=== PATIENT | male | born 1980 | race Caucasian/White ===

== ENCOUNTER 2016-06-09 11:36 | Emergency (ER) | payer MEDICAID ==
[~2016-06-09] VITALS: Ht 175.3 cm; Wt 87.1 kg
[2016-06-09] MEDS ORDERED: SYNT25TA PO (11:47)
[2016-06-09] MEDS ORDERED: FLOV50AE IN (11:47)
[2016-06-09] MEDS ORDERED: ALBU17IN2 INH (11:47)
--- NOTE | 2016-06-09 13:59 | REP ---
RIGHT KNEE, FIVE VIEWS: HISTORY: Pain. There is no acute fracture or dislocation. The joint spaces are normal in appearance. IMPRESSION: There is no acute fracture or dislocation. Signed by Aldair Victor MD 06/09/2016 02:05 P
[2016-06-09] MEDS ORDERED: MELO7.5T6 PO (14:20)
[2016-06-09 14:28] VITALS: BP 121/79
== END 2016-06-09 14:30 | disposition home or self-care (01) ==
LOC: M ED 12:46
DX: M25.561 Pain in right knee (principal); Z79.899 Other long term (current) drug therapy; Z91.030 Bee allergy status; Z88.0 Allergy status to penicillin; Z91.018 Allergy to other foods

== ENCOUNTER 2016-09-22 08:29 | Emergency (ER) | payer MEDICAID, OTHER ==
[~2016-09-22] VITALS: Ht 175.3 cm; Wt 86.3 kg
[~2016-09-22 08:29] MED LIST: ALBU17IN2 INH; FLOV50AE IN; MELO7.5T7 PO; SYNT25TA PO
[2016-09-22 08:40] VITALS: BP 126/74
[2016-09-22] MEDS ORDERED: IBUPROFEN 800 MG TAB PO ONE (09:30)
[2016-09-22] MEDS ORDERED: NORCOTAB PO (10:03)
--- NOTE | 2016-09-22 10:27 | REP ---
UNILATERAL LEFT RIBS, PA CHEST, FIVE VIEWS: HISTORY: Left anterior rib pain. The lungs are clear. The heart is normal in size. The pulmonary vasculature is normal in appearance. There is a fracture of the left 7th rib. IMPRESSION: Left 7th rib fracture. Signed by Aldair Victor MD 09/22/2016 10:29 A
== END 2016-09-22 10:15 | disposition home or self-care (01) ==
LOC: M ED 08:29
DX: S22.32XA Fracture of one rib, left side, initial encounter for closed fracture (principal); V19.9XXA Pedal cyclist (driver) (passenger) injured in unspecified traffic accident, initial encounter; Y92.830 Public park as the place of occurrence of the external cause; Y93.55 Activity, bike riding; Y99.9 Unspecified external cause status; J45.909 Unspecified asthma, uncomplicated; E07.9 Disorder of thyroid, unspecified; F17.200 Nicotine dependence, unspecified, uncomplicated; Z91.030 Bee allergy status; Z88.0 Allergy status to penicillin; Z91.018 Allergy to other foods

== ENCOUNTER → 2016-12-08 | Outpatient (REF) ==
[~2016-12-08] MED LIST changes: +NORCOTAB PO
--- NOTE | 2016-12-08 13:38 | REP ---
Lumbar spine three views: There are no comparisons. Vertebral body heights, interspacing alignment are normal. I suspect there is L5 spondylolysis. There is no spondylolisthesis. The pedicles, facets and sacroiliac articulations are unremarkable. There is a pelvic calcification inferiorly on the right. Impression: L5 spondylolysis without spondylolisthesis. Pelvic calcification. Otherwise, negative lumbar spine. Signed by Carlos Tenorio MD 12/08/2016 01:29 P
== END ==
LOC: M SMT 11:57
PROVIDERS: ATTEND Internal Medicine
DX: M54.5 Low back pain (principal)

== ENCOUNTER 2017-04-11 12:38 | Emergency (ER) | payer OTHER ==
[2017-04-11 14:30] LABS: BASO # 0.2 10^3/uL (0.0-0.2); BASO % 1.1 % (0.0-1.0); EOS # 0.3 10^3/uL (0.0-0.50); EOS % 2.4 % (0.0-3.0); HEMATOCRIT 47.6 % (42.0-52.0); IMMATURE GRANULOCYTE % 3.1 % (0-3.0); LYMPH # 2.1 10^3/uL (1.5-4.5); LYMPH % 14.8 % (24.0-44.0); MEAN CORPUSCULAR HEMOGLOBIN 31.7 pg (27.0-33.0); MEAN CORPUSCULAR HGB CONC 35.7 g/dl (32.0-36.5); MEAN CORPUSCULAR VOLUME 88.8 fl (80.0-96.0); MONO # 1.2 10^3/uL (0.0-0.8); MONO % 8.4 % (0.0-5.0); NEUTROPHILS # 9.8 10^3/uL (1.8-7.7); NEUTROPHILS % 70.2 % (36.0-66.0); PLATELET COUNT, AUTOMATED 264 10^3/uL (150-450); RED BLOOD COUNT 5.36 10^6/uL (4.30-6.10); RED CELL DISTRIBUTION WIDTH 12.3 % (11.5-14.5)
[2017-04-11 14:52] LABS: ANION GAP 7 MEQ/L (8-16); BLOOD UREA NITROGEN 24 MG/DL (7-18); C REACTIVE PROTEIN QUANTITATIV 0.38 MG/DL (0.00-0.30); CALCIUM LEVEL 8.9 MG/DL (8.5-10.1); CARBON DIOXIDE LEVEL 23 MEQ/L (21-32); CHLORIDE LEVEL 110 MEQ/L (98-107); CREATININE FOR GFR 1.07 MG/DL (0.70-1.30); GLOMERULAR FILTRATION RATE > 60.0 (>60); GLUCOSE, FASTING 120 MG/DL (70-100); POTASSIUM SERUM 4.2 MEQ/L (3.5-5.1); SODIUM LEVEL 140 MEQ/L (136-145)
[2017-04-11 16:28] LABS: CHLAMYDIA DNA AMPLIFICATION NEGATIVE (NEGATIVE); GC DNA AMPLIFICATION NEGATIVE (NEGATIVE)
[2017-04-11] MEDS: IBUPROFEN 600 MG TAB PO (16:56)
== END 2017-04-11 17:00 | disposition home or self-care (01) ==
LOC: M ED 12:38
DX: M77.9 Enthesopathy, unspecified (principal); M70.32 Other bursitis of elbow, left elbow; F17.210 Nicotine dependence, cigarettes, uncomplicated; E03.9 Hypothyroidism, unspecified; Z91.018 Allergy to other foods; Z88.0 Allergy status to penicillin; Z91.030 Bee allergy status
CPT/HCPCS: 73080

== ENCOUNTER → 2017-04-19 | Outpatient (CLI) | payer OTHER ==
[2017-04-19 13:56] LABS: BASO # 0.1 10^3/uL (0.0-0.2); BASO % 0.7 % (0.0-1.0); EOS # 0.2 10^3/uL (0.0-0.50); EOS % 1.4 % (0.0-3.0); HEMATOCRIT 48.4 % (42.0-52.0); HEMOGLOBIN 16.8 g/dl (14.0-18.0); IMMATURE GRANULOCYTE % 2.4 % (0-3.0); LYMPH # 2.1 10^3/uL (1.5-4.5); LYMPH % 18.5 % (24.0-44.0); MEAN CORPUSCULAR HEMOGLOBIN 31.3 pg (27.0-33.0); MEAN CORPUSCULAR HGB CONC 34.7 g/dl (32.0-36.5); MEAN CORPUSCULAR VOLUME 90.3 fl (80.0-96.0); MONO # 0.6 10^3/uL (0.0-0.8); MONO % 5.3 % (0.0-5.0); NEUTROPHILS # 8.1 10^3/uL (1.8-7.7); NEUTROPHILS % 71.7 % (36.0-66.0); PLATELET COUNT, AUTOMATED 267 10^3/uL (150-450); RED BLOOD COUNT 5.36 10^6/uL (4.30-6.10); RED CELL DISTRIBUTION WIDTH 12.4 % (11.5-14.5); WHITE BLOOD COUNT 11.3 10^3/uL (4.0-10.0)
[2017-04-19 14:15] LABS: ESTIMATED AVERAGE GLUCOSE 94 MG/DL (60-110); HEMOGLOBIN A1c 4.9 %
[2017-04-19 14:32] LABS: ALBUMIN 4.2 GM/DL (3.2-5.2); ALBUMIN/GLOBULIN RATIO 1.24 (1.00-1.93); ALKALINE PHOSPHATASE 92 U/L (45-117); ALT/SGPT 19 U/L (12-78); ANION GAP 7 MEQ/L (8-16); AST/SGOT 15 U/L (7-37); BILIRUBIN,TOTAL 0.5 MG/DL (0.2-1.0); BLOOD UREA NITROGEN 13 MG/DL (7-18); CALCIUM LEVEL 9.1 MG/DL (8.5-10.1); CARBON DIOXIDE LEVEL 28 MEQ/L (21-32); CHLORIDE LEVEL 106 MEQ/L (98-107); CHOLESTEROL LEVEL 172 MG/DL (<200); CHOLESTEROL RISK RATIO 4.095 (<5); CREATININE FOR GFR 1.11 MG/DL (0.70-1.30); FREE THYROXINE INDEX 2.3 % (1.4-3.8); GLOMERULAR FILTRATION RATE > 60.0 (>60); GLUCOSE, FASTING 82 MG/DL (70-100); HDL CHOLESTEROL 42 MG/DL (>40); LDL CHOLESTEROL 96.4 MG/DL (<100); NON-HDL-C 130 MG/DL; POTASSIUM SERUM 4.1 MEQ/L (3.5-5.1); SODIUM LEVEL 141 MEQ/L (136-145); T UPTAKE 30 % (33-40); THYROXINE (T4) 7.7 UG/DL (4.5-12.0); TOTAL PROTEIN 7.6 GM/DL (6.4-8.2); TRIGLYCERIDES LEVEL 168 MG/DL (<150)
[2017-04-19 15:34] LABS: CHLAMYDIA DNA AMPLIFICATION NEGATIVE (NEGATIVE); GC DNA AMPLIFICATION NEGATIVE (NEGATIVE)
[2017-04-20 08:13] LABS: HEPATITIS B CORE ANTIBODY IGG Negative (Negative)
[2017-04-21 13:03] LABS: HEPATITIS B SURFACE ANTIBODY NEGATIVE (POSITIVE)
[2017-04-21 13:41] LABS: HEPATITIS C VIRUS ABY INDEX 0.1 INDEX (<0.8)
[2017-04-21 13:42] LABS: HIV 1&2 SCREEN CENTAUR NEGATIVE (NEGATIVE)
== END ==
LOC: M LAB 13:01
DX: Z13.9 Encounter for screening, unspecified (principal); R94.6 Abnormal results of thyroid function studies; E78.5 Hyperlipidemia, unspecified
CPT/HCPCS: 84443

== ENCOUNTER 2017-05-31 13:18 | Emergency (ER) | payer OTHER ==
[2017-05-31] MEDS ORDERED: BACITRACIN OINT 30GM TOP (15:39)
[2017-05-31] MEDS: IBUPROFEN 600 MG TAB PO (16:00)
[2017-05-31] MEDS: NEOSPORIN OINT 0.9 GM PKT (FLOOR STOCK) TOP (16:00)
== END 2017-05-31 16:03 | disposition home or self-care (01) ==
LOC: M ED 13:18
DX: S01.91XA Laceration without foreign body of unspecified part of head, initial encounter (principal); W22.09XA Striking against other stationary object, initial encounter; Y92.410 Unspecified street and highway as the place of occurrence of the external cause; Y93.02 Activity, running; E03.9 Hypothyroidism, unspecified; F17.200 Nicotine dependence, unspecified, uncomplicated; Z79.890 Hormone replacement therapy; Z91.030 Bee allergy status; Z88.0 Allergy status to penicillin; Z91.018 Allergy to other foods
CPT/HCPCS: 12004

== ENCOUNTER 2017-12-09 14:13 | Emergency (ER) | payer OTHER | END 2017-12-09 16:22 | disposition home or self-care (01) | LOC: M ED 14:13 | DX: S46.001A Unspecified injury of muscle(s) and tendon(s) of the rotator cuff of right shoulder, initial encounter (principal); V18.0XXA Pedal cycle driver injured in noncollision transport accident in nontraffic accident, initial encounter; Y92.89 Other specified places as the place of occurrence of the external cause; I10 Essential (primary) hypertension; J45.909 Unspecified asthma, uncomplicated; E03.9 Hypothyroidism, unspecified; F33.9 Major depressive disorder, recurrent, unspecified; Z88.0 Allergy status to penicillin; Z91.018 Allergy to other foods; Z91.030 Bee allergy status; F17.210 Nicotine dependence, cigarettes, uncomplicated | CPT/HCPCS: 73030 ==

== ENCOUNTER → 2018-04-13 | Outpatient (CLI) | payer OTHER ==
[~2018-04-13] MED LIST changes: +IBUP-1114 PO; +LEVO10VL IM; +LEVO112T2 PO; +NAPR-50 PO
[2018-04-13 15:04] LABS: BASO # 0.1 10^3/uL (0.0-0.2); BASO % 0.7 % (0.0-1.0); EOS # 0.2 10^3/uL (0.0-0.50); EOS % 1.6 % (0.0-3.0); HEMATOCRIT 45.5 % (42.0-52.0); LYMPH # 2.4 10^3/uL (1.5-4.5); LYMPH % 18.6 % (24.0-44.0); MEAN CORPUSCULAR HEMOGLOBIN 31.9 pg (27.0-33.0); MEAN CORPUSCULAR HGB CONC 35.2 g/dl (32.0-36.5); MEAN CORPUSCULAR VOLUME 90.6 fl (80.0-96.0); MONO # 0.7 10^3/uL (0.0-0.8); MONO % 5.4 % (0.0-5.0); NEUTROPHILS # 9.1 10^3/uL (1.8-7.7); NEUTROPHILS % 71.3 % (36.0-66.0); PLATELET COUNT, AUTOMATED 216 10^3/uL (150-450); RED BLOOD COUNT 5.02 10^6/uL (4.30-6.10); WHITE BLOOD COUNT 12.7 10^3/uL (4.0-10.0)
[2018-04-13 15:26] LABS: HEMOGLOBIN A1c 5.1 %
[2018-04-13 15:34] LABS: ALT/SGPT 19 U/L (12-78); BILIRUBIN,DIRECT 0.1 MG/DL (0.0-0.2); BILIRUBIN,TOTAL 0.6 MG/DL (0.2-1.0); BLOOD UREA NITROGEN 19 MG/DL (7-18); CALCIUM LEVEL 8.8 MG/DL (8.5-10.1); CARBON DIOXIDE LEVEL 25 MEQ/L (21-32); CHLORIDE LEVEL 106 MEQ/L (98-107); CHOLESTEROL LEVEL 193 MG/DL (<200); CHOLESTEROL RISK RATIO 4.386 (<5); CREATININE FOR GFR 1.06 MG/DL (0.70-1.30); FREE T3 3.3 PG/ML (2.2-4.0); FREE T4 0.88 NG/DL (0.76-1.46); GLOMERULAR FILTRATION RATE > 60.0 (>60); GLUCOSE, FASTING 93 MG/DL (70-100); GLUCOSE,RANDOM 93 MG/DL (LESS THAN 200); HDL CHOLESTEROL 44 MG/DL (>40); LDL CHOLESTEROL 128 MG/DL (<100); NON-HDL-C 149 MG/DL; PHOSPHORUS LEVEL 2.8 MG/DL (2.5-4.9); POTASSIUM SERUM 3.9 MEQ/L (3.5-5.1); SODIUM LEVEL 138 MEQ/L (136-145); TOTAL 25(OH) VITAMIN D 19.8 NG/ML (30.0-100.0); TOTAL PROTEIN 7.2 GM/DL (6.4-8.2); TRIGLYCERIDES LEVEL 106 MG/DL (<150)
--- NOTE | 2018-04-13 22:02 | ECGEPIP ---
Stationary ECG Study [facility] Test Date: 2018-04-13 Pat Name: JUAN PABLO LEIJA Department: Room: - Gender: M [employer]: : 1980 Requested By: Marc Castro Order Number: [id number] Reading MD: Pratik Gonzalez Measurements Intervals [place] Rate: 66 P: 60 [place]: 163 QRS: -27 QRSD: 94 T: 16 QT: 381 QTc: 400 Interpretive Statements NSR Somewhat low voltages with slow precordial R wave progression, persistent R waves V5 and V6, and inferior Q waves; Body habitus versus pulmonary disease. R/O IWMI No prior tracing for comparison Electronically Signed On 04-13-2018 22:01:37 EST by Pratik Gonzalez
== END ==
LOC: M LAB 14:28
PROVIDERS: ATTEND Family Medicine Addiction Medicine
DX: F43.10 Post-traumatic stress disorder, unspecified (principal)